=== PATIENT | male | born 1985 | race Caucasian/White ===

== ENCOUNTER 2017-02-24 19:45 | Emergency (ER) | payer OTHER, BC ==
[2017-02-24 19:56] VITALS: BP 127/72
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
== END 2017-02-24 20:30 | disposition home or self-care (01) ==
LOC: ER 19:45
DX: Z77.098 Contact with and (suspected) exposure to other hazardous, chiefly nonmedicinal, chemicals (principal)
CPT/HCPCS: 99283